=== PATIENT | female | born 1950 | race Caucasian/White ===

== ENCOUNTER 2018-09-27 13:20 | Outpatient (CLI) | payer BC ==
--- NOTE | 2018-09-27 14:29 | MRI ---
MRI lumbar spine noncontrast: HISTORY: Lumbar radiculopathy COMPARISON: None FINDINGS: Heterogeneous marrow signal intensity, likely due to senescent change. Vertebral body height is maint ained. No fracture. No symmetric and STIR hyperintensity to suggest vertebral body edema or ligamentous injury. 3.7 mm of anterolisthesis of L3 upon L4. 8 mm of anterolisthesis of L4 upon L5. Conus medullaris terminates at the inferior aspect of T12 Visualized paraspinal muscles and solid organs of appropriate signal intensity T12-L1:No significant central canal stenosis or neural foraminal narrowing L1-L2:No significant central canal stenosis. Neural foramina are patent. L2-L3:Adequate disc hydration. Minimal generalized disc bulge, ligament flavum thickening and facet h ypertrophy result in minimal central canal stenosis. Bilaterally, neural foramina are. L3-L4:Disc space height is preserved. Generalized disc bulge, ligament flavum thickening and facet hy pertrophy result in moderate central canal stenosis or there is fluid in bilateral facet joints. Right neural foramen is patent. Moderate left neural foraminal narrowing predominantly due to disc ma terial. There is a subtle T2 and STIR hyperintensity involving the left foraminal disc. Small annular tear is favored and is adjacent to the foraminal left L3 root. L4-L5:Severe loss of disc space height. Broad-based disc bulge, ligamentum flavum thickening and face t hypertrophy result in severe central canal stenosis. Severe right and moderate left narrowing. Fluid in both facet joints L5-S1:Broad-based disc bulge does not cause any significant stenosis of the disc space level. There i s posterior midline superior disc extrusion which does cause severe central canal stenosis at the mid aspect of L5. Mild bilateral neural foraminal narrowing. IMPRESSION: 1. Severe stenosis at the mid L5 level secondary to superior disc extrusion, midline in location. 2. Severe central canal stenosis at L4-L5. 3. Severe right and moderate left neural foraminal narrowing at L4-L5. 4. Annular tear involving the left foraminal disc at L3-L4. Annular tear abuts the foraminal left L3 nerve root.
== END 2018-09-27 13:21 | disposition home or self-care (01) ==
LOC: TBSIIMAG 13:20
PROVIDERS: ATTEND Neurological Surgery
DX: M51.16 Intervertebral disc disorders with radiculopathy, lumbar region (principal); M48.061 Spinal stenosis, lumbar region without neurogenic claudication
CPT/HCPCS: 72148

== ENCOUNTER 2019-02-23 14:26 | Outpatient (CLI) | payer BC ==
--- NOTE | 2019-02-23 16:42 | RAD ---
LUMBAR SPINE SERIES 2 VIEWS: Date: 02/23/19 HISTORY: Complaining of right leg pain since surgery. FINDINGS: Bilateral pedicle screws are noted at L5-S1 with vertical connecting stevenson. Spondylolisthesis of L4 on L5 of approximately 9 mm is noted. Marked degenerative disc narrowing at L5-S1. Postoperative laminec chela changes are seen at these levels. Spondylolisthesis of L3 on L4 is approximately 7 mm. IMPRESSION: Postoperative changes with spondylolisthesis of L3 on L4 and L4 on L5. POS: TPC
== END 2019-02-23 14:27 | disposition home or self-care (01) ==
LOC: TBSIIMAG 14:26
PROVIDERS: ATTEND Neurological Surgery
DX: M48.062 Spinal stenosis, lumbar region with neurogenic claudication (principal); M43.16 Spondylolisthesis, lumbar region; Z98.890 Other specified postprocedural states
CPT/HCPCS: 72100

== ENCOUNTER 2019-04-11 12:46 | Outpatient (CLI) | payer BC ==
--- NOTE | 2019-04-11 13:24 | RAD ---
XR Lumbar Spine 2 Or 3 View: 04/11/2019 12:00 AM Postoperative lumbar spine with lumbar radiculopathy COMPARISON: February 23, 2019 FINDINGS: Fracture: None. Alignment: Grade 1 anterolisthesis of L3 on L4 and L4 and L5 is stable. There is stable postsurgical change of an interbody fusion at L4-5. Right-sided pedicle screws at L4 and L5 with interconnecting cable project in the expected position. Laminectomy changes at L3, L4 and L5 are stable. Degenerative Change: The moderate disc degenerative disease at L5-S1 and L3-4 is stable. Soft tissues: There are scattered vascular calcifications involving the abdominal aorta. Visualized b owel gas pattern is unremarkable.. IMPRESSION: Postoperative lumbar spine. No acute fracture or subluxation demonstrated. Stable spondyl osis.
== END 2019-04-11 12:47 | disposition home or self-care (01) ==
LOC: TBSIIMAG 12:46
PROVIDERS: ATTEND Neurological Surgery
DX: M47.26 Other spondylosis with radiculopathy, lumbar region (principal); Z98.890 Other specified postprocedural states
CPT/HCPCS: 72100

== ENCOUNTER 2021-01-24 20:36 | Observation (INO) | payer BC ==
[2021-01-24 23:07] VITALS: BMI 25.1
[2021-01-25] MEDS ORDERED: Acetaminophen 325 MG TAB PO PRN (02:13)
[2021-01-25] MEDS ORDERED: Senokot S 8.6-50 MG TAB PO PRN (02:13)
[2021-01-25] MEDS ORDERED: Ondansetron PF 4 MG/2 ML Vial IVP PRN (02:13)
[2021-01-25] MEDS ORDERED: Bisacodyl 5 MG TAB PO PRN (02:13)
[2021-01-25] MEDS ORDERED: hydrALAZINE 20 MG/ML VIAL SLOW IVP PRN (02:19)
[2021-01-25] MEDS ORDERED: Melatonin 3 MG TAB PO PRN (02:21)
[2021-01-25] MEDS ORDERED: Aspirin Chewable 81 MG TAB PO SCH (02:30)
[2021-01-25] MEDS ORDERED: Enoxaparin Sodium 40 MG/0.4 ML SYRINGE SC SCH ×2 (02:30→09:00)
[2021-01-25 06:07] LABS: #Basophils 0.1 thou/uL (0.0-0.2); #Eosinphils 0.4 thou/uL (0.0-0.7); #Monocytes 0.8 thou/uL (0.11-0.59); #Neutrophils 5.1 thou/uL (1.40-6.50); %Basophils 1.3 % (0.0-1.0); %Eosinophils 4.1 % (0.0-10.0); %Lymphocytes 31.6 % (21.0-51.0); %Monocytes 8.6 % (0.0-10.0); %Neutrophils 54.3 % (42.0-75.0); Mean Corpuscular Hemoglobin 30.2 pg (27.0-31.0); Mean Corpuscular Volume 91.2 fL (78.0-98.0); Mean Platelet Volume 7.9 fL (7.4-10.4); Platelet Count 316 thou/uL (130-400); RBC Distribution Width 13.1 % (11.5-14.5); Red Blood Cell (RBC) Count 4.64 mill/uL (4.20-5.40); White Blood Cell (WBC) Count 9.4 thou/uL (4.8-10.8)
[2021-01-25 06:15] LABS: Hemoglobin A1c 5.9 % (4.0-6.0)
[2021-01-25 06:27] LABS: ALT (SGPT) 11 U/L (8-55); AST (SGOT) 14 U/L (5-34); Albumin 3.7 g/dL (3.4-4.8); Alkaline Phosphatase 65 U/L (40-110); Anion Gap 11 mmol/L (10-20); BUN (Urea Nitrogen) 15 mg/dL (9.8-20.1); Bilirubin, Total 0.3 mg/dL (0.2-1.2); Calc. Creatinine Clearance 71 mL/min (70-130); Carbon Dioxide 25 mmol/L (23-31); Cardiac Risk 3.1 (Less than 4.5); Chloride 109 mmol/L (98-107); Cholesterol 135 mg/dl (< 200 Desired); Globulin 2.4 g/dL (2.4-3.5); Glucose 89 mg/dL (80-115); HDL Cholesterol 44 mg/dL (>60 Neg Risk); LDL Cholesterol, Calculated 71 mg/dL; Potassium 4.2 mmol/L (3.5-5.1); Protein, Total 6.1 g/dL (5.8-8.1); Sodium 141 mmol/L (136-145); Triglycerides 102 mg/dL (Less than 150)
[2021-01-25] MEDS ORDERED: Famotidine 20 MG TAB PO SCH (09:00)
[2021-01-25 12:38] VITALS: BP 162/82; TEMP 97.9
[2021-01-25] MEDS ORDERED: Clopidogrel Bisulfate 75 MG TAB PO SCH (14:30)
[2021-01-25] MEDS ORDERED: Atorvastatin Calcium 20 MG TAB PO SCH (21:00)
[2021-01-26] MEDS ORDERED: Levothyroxine Sodium 50 MCG TAB PO SCH (06:00)
[2021-01-26] MEDS ORDERED: Clopidogrel Bisulfate 75 MG TAB PO SCH (09:00)
[2021-01-26] MEDS ORDERED: Liothyronine Sodium 5 MCG TAB PO SCH (09:00)
== END 2021-01-25 16:27 | disposition home or self-care (01) ==
LOC: 3SE 22:51
PROVIDERS: ADMIT Internal Medicine; ATTEND Family Medicine
DX: I63.81 Other cerebral infarction due to occlusion or stenosis of small artery (principal); R20.0 Anesthesia of skin; R20.2 Paresthesia of skin; I10 Essential (primary) hypertension; E03.9 Hypothyroidism, unspecified; E78.5 Hyperlipidemia, unspecified; K21.9 Gastro-esophageal reflux disease without esophagitis; E78.00 Pure hypercholesterolemia, unspecified; I65.21 Occlusion and stenosis of right carotid artery; I08.1 Rheumatic disorders of both mitral and tricuspid valves; Z79.82 Long term (current) use of aspirin; Z79.83 Long term (current) use of bisphosphonates; Z79.899 Other long term (current) drug therapy
CPT/HCPCS: 36415; 70551; 80053; 80061; 83036; 84443; 85025; 93306; 93880; 96372; G0378; J1650

== ENCOUNTER 2021-01-28 15:48 | Inpatient (IN) | payer MEDICARE, BC ==
[2021-01-28 23:02] VITALS: BMI 24.9
[2021-01-29] MEDS ORDERED: Ondansetron PF 4 MG/2 ML Vial IVP PRN (04:00)
[2021-01-29] MEDS ORDERED: Acetaminophen 650 MG Suppository PR PRN (04:00)
[2021-01-29] MEDS ORDERED: Ondansetron ODT 4 MG TAB PO PRN (04:00)
[2021-01-29] MEDS ORDERED: Acetaminophen 325 MG TAB PO PRN (04:00)
[2021-01-29] MEDS ORDERED: hydrALAZINE 20 MG/ML VIAL SLOW IVP PRN (04:00)
[2021-01-29] MEDS: Clopidogrel Bisulfate 75 MG TAB PO SCH (09:15)
[2021-01-29] MEDS: Aspirin 81 mg Enteric Coated Tablet PO SCH (09:15)
[2021-01-29] MEDS: Cholecalciferol 1,000 UNITS (25 MCG) TAB PO SCH (09:27)
[2021-01-29] MEDS ORDERED: Atorvastatin Calcium 20 MG TAB PO SCH ×2 (21:00)
[2021-01-30 05:37] LABS: #Basophils 0.1 thou/uL (0.0-0.2); #Eosinphils 0.4 thou/uL (0.0-0.7); #Lymphocytes 2.2 thou/uL (1.20-3.40); #Monocytes 0.8 thou/uL (0.11-0.59); #Neutrophils 4.7 thou/uL (1.40-6.50); %Basophils 0.9 % (0.0-1.0); %Lymphocytes 26.8 % (21.0-51.0); %Neutrophils 57.3 % (42.0-75.0); Hemoglobin 14.7 g/dL (12.0-16.0); Mean Corpuscular HGB CONC 33.5 g/dL (32.0-36.0); Mean Corpuscular Hemoglobin 30.7 pg (27.0-31.0); Mean Corpuscular Volume 91.7 fL (78.0-98.0); Mean Platelet Volume 8.1 fL (7.4-10.4); Platelet Count 345 thou/uL (130-400); RBC Distribution Width 13.2 % (11.5-14.5); Red Blood Cell (RBC) Count 4.78 mill/uL (4.20-5.40); White Blood Cell (WBC) Count 8.2 thou/uL (4.8-10.8)
[2021-01-30] MEDS ORDERED: Levothyroxine Sodium 75 MCG TAB PO SCH (06:00)
[2021-01-30] MEDS ORDERED: Liothyronine Sodium 5 MCG TAB PO SCH (06:00)
[2021-01-30 06:03] LABS: Anion Gap 13 mmol/L (10-20); BUN (Urea Nitrogen) 14 mg/dL (9.8-20.1); Calc. Creatinine Clearance 68 mL/min (70-130); Calcium 9.1 mg/dL (7.8-10.44); Carbon Dioxide 24 mmol/L (23-31); Cardiac Risk 2.8 (Less than 4.5); Chloride 105 mmol/L (98-107); Cholesterol 134 mg/dl (< 200 Desired); Glucose 107 mg/dL (80-115); HDL Cholesterol 48 mg/dL (>60 Neg Risk); LDL Cholesterol, Calculated 71 mg/dL; Sodium 138 mmol/L (136-145); Triglycerides 76 mg/dL (Less than 150)
[2021-01-30] MEDS: Cholecalciferol 1,000 UNITS (25 MCG) TAB PO SCH (09:04)
[2021-01-30] MEDS ORDERED: PROPOFOL 200 MG/20 ML VIAL ONE (11:27)
[2021-01-30] MEDS: Clopidogrel Bisulfate 75 MG TAB PO SCH (12:36)
[2021-01-30] MEDS: Aspirin 81 mg Enteric Coated Tablet PO SCH (12:36)
[2021-01-30 16:12] VITALS: BP 152/81; TEMP 99.2
[2021-01-30] MEDS ORDERED: Apixaban 5 MG TAB PO SCH ×2 (17:45→21:00)
[2021-01-31] MEDS ORDERED: Apixaban 5 MG TAB PO SCH (09:00)
== END 2021-01-30 19:21 | disposition home or self-care (01) | DRG 65 ==
LOC: INTOOBSV 15:48 → 3SE 15:48 → OBSVTOIN 01-29 11:37
PROVIDERS: ADMIT Internal Medicine; ATTEND Hospitalist
PROC: B24BZZ4 Ultrasonography of Heart with Aorta, Transesophageal (ICD-10-PCS; principal; 2021-01-30)
DX: I63.9 Cerebral infarction, unspecified (principal); Q21.1 Atrial septal defect; G81.94 Hemiplegia, unspecified affecting left nondominant side; R47.9 Unspecified speech disturbances; R29.700 NIHSS score 0; E03.9 Hypothyroidism, unspecified; I11.9 Hypertensive heart disease without heart failure; E78.5 Hyperlipidemia, unspecified; I08.3 Combined rheumatic disorders of mitral, aortic and tricuspid valves; Z79.899 Other long term (current) drug therapy; Z79.82 Long term (current) use of aspirin; Z79.02 Long term (current) use of antithrombotics/antiplatelets; Z79.890 Hormone replacement therapy; Z90.710 Acquired absence of both cervix and uterus; Z90.49 Acquired absence of other specified parts of digestive tract
CPT/HCPCS: 36415; 70551; 80048; 80061; 85025; 93312; G0378; J2704